=== PATIENT | female | born 1965 | race Caucasian/White ===

== ENCOUNTER 2022-12-31 12:11 | Outpatient (CLI) | payer BC | END 2022-12-31 12:12 | disposition home or self-care (01) | LOC: CSHCP 12:11 | PROVIDERS: ATTEND Internal Medicine Cardiovascular Disease | DX: R06.02 Shortness of breath (principal) | CPT/HCPCS: 94010; 94726; 94729; 94760 ==

== ENCOUNTER 2023-02-25 10:07 | Outpatient (CLI) | payer BC | END 2023-02-25 10:08 | disposition home or self-care (01) | LOC: CSHULT 10:07 | PROVIDERS: ATTEND Internal Medicine Cardiovascular Disease | DX: R74.8 Abnormal levels of other serum enzymes (principal); K74.60 Unspecified cirrhosis of liver; R16.1 Splenomegaly, not elsewhere classified; K80.20 Calculus of gallbladder without cholecystitis without obstruction | CPT/HCPCS: 76700 ==